=== PATIENT | male | born 1975 | race Caucasian/White ===

== ENCOUNTER 2017-04-19 18:17 | Emergency (ER) | payer MEDICAID ==
[~2017-04-19] VITALS: Ht 167.6 cm; Wt 92.0 kg
[~2017-04-19 18:17] MED LIST: B.AN1CAP PO
[2017-04-19 18:26] VITALS: Ht 167.6 cm; Wt 92.0 kg
[2017-04-19] MEDS ORDERED: ONDANSETRON (ODT) 4 MG TAB ODT STA (19:37)
--- NOTE | 2017-04-19 19:47 | ERD ---
ER Documentation Chief Complaint Date/Time DATE: 04/19/17 TIME: 19:45 Chief Complaint RUQ ap x1` week. states +gas and burning after eating denies n/v HPI 41-year-old male presents in emergency department for complaint of right upper quadrant abdominal pain for one week. Patient described pain as sharp pain, 6/ 10 scale, is worse after eating. Patient has any fever or chills. Patient denies any hematuria or dysuria. Patient denies any incontinence. ROS All systems reviewed and are negative except as per history of present illness. Medications Home Meds Reported Medications B.ani/L.aci/L.luis/L.plan/L.theodore (Probiotic Formula Capsule) 1 Each Capsule, PO DAILY 07/18/11 Allergies Allergies: Coded Allergies: No Known Allergy (Verified , 04/19/17) PMhx/Soc Medical and Surgical Hx: pt denies Medical Hx, pt denies Surgical Hx History of Surgery: No Anesthesia Reaction: No Hx Neurological Disorder: No Hx Respiratory Disorders: No Hx Cardiac Disorders: No Hx Psychiatric Problems: No Hx Miscellaneous Medical Probl: No Hx Alcohol Use: No Hx Substance Use: No Hx Tobacco Use: No Smoking Status: Never smoker FmHx Family History: No coronary disease, No diabetes, No other Physical Exam Vitals Vital Signs Date Time Temp Pulse Resp B/P Pulse Ox O2 Delivery O2 Flow Rate FiO2 04/19/17 18:26 98.0 92 18 155/92 98 Physical Exam GENERAL: The patient is well developed and appropriate for usual state of health, in no apparent distress. CHEST: Clear to auscultation bilaterally. There are no rales, wheezes or rhonchi. HEART: Regular rate and rhythm. No murmurs, clicks, rubs or gallops. No S3 or S4. ABDOMEN: Soft, nontender and nondistended. Good bowel sounds. No rebound or guarding. No gross peritonitis. No gross organomegaly or masses. No Walls sign or McBurney point tenderness. BACK: No midline or flank tenderness. EXTREMITIES: Equal pulses bilaterally. There is no peripheral clubbing, cyanosis or edema. No focal swelling or erythema. Full range of motion. Grossly neurovascularly intact. NEURO: Alert and oriented. Cranial nerves 2-12 intact. Motor strength in all 4 extremities with 5/5 strength. Sensation grossly intact. Normal speech and gait. SKIN: There is no apparent rash or petechia. The skin is warm and dry. HEMATOLOGIC AND LYMPHATIC: There is no evidence of excessive bruising or lymphedema. No gross cervical, axillary, or inguinal lymphadenopathy. Result Diagram: 04/19/17193904/19/171939 Results 24 hrs Laboratory Tests Test 04/19/17 19:40 04/19/17 19:50 White Blood Count 4.110^3/ul Red Blood Count 4.8410^6/ul Hemoglobin 14.9g/dl Hematocrit 43.5% Mean Corpuscular Volume 89.9fl Mean Corpuscular Hemoglobin 30.8pg Mean Corpuscular Hemoglobin Concent 34.3g/dl Red Cell Distribution Width 12.9% Platelet Count 89686^3/UL Mean Platelet Volume 10.5fl Neutrophils % 39.3% Lymphocytes % 43.6% Monocytes % 12.7% Eosinophils % 3.2% Basophils % 1.0% Nucleated Red Blood Cells % 0.0/100WBC Neutrophils # (Manual) 1.610^3/ul Lymphocytes # 1.810^3/ul Monocytes # 0.510^3/ul Eosinophils # 0.110^3/ul Basophils # 0.010^3/ul Nucleated Red Blood Cells # 0.010^3/ul Sodium Level 142mmol/L Potassium Level 4.2mmol/L Chloride Level 105mmol/L Carbon Dioxide Level 28mmol/L Anion Gap 13 Blood Urea Nitrogen 12mg/dl Creatinine 0.90mg/dl Glucose Level 96mg/dl Calcium Level 9.5mg/dl Total Bilirubin 0.2mg/dl Direct Bilirubin 0.00mg/dl Indirect Bilirubin 0.2mg/dl Aspartate Amino Transf (AST/SGOT) 31IU/L Alanine Aminotransferase (ALT/SGPT) 54IU/L Alkaline Phosphatase 52IU/L Total Protein 8.0g/dl Albumin 4.6g/dl Globulin 3.40g/dl Albumin/Globulin Ratio 1.35 Lipase 54U/L Urine Color COLORLESS Urine Clarity CLEAR Urine pH 6.0 Urine Specific [place] 1.003 Urine Ketones NEGATIVEmg/dL Urine Nitrite NEGATIVEmg/dL Urine Bilirubin NEGATIVEmg/dL Urine Urobilinogen NEGATIVEmg/dL Urine Leukocyte Esterase NEGATIVELeu/ul Urine Hemoglobin NEGATIVEmg/dL Urine Glucose NEGATIVEmg/dL Urine Total Protein NEGATIVEmg/dl Current Medications Medications (Trade) Dose Ordered Sig/Vickie Route PRN Reason Start Time Stop Time Status Last Admin Dose Admin Ondansetron HCl (Zofran Odt) 4 mg ONCE STAT ODT 04/19/17 19:37 04/19/17 19:39 DC 04/19/17 19:51 Patient was given Zofran here in the emergency department. After treatment, patient was able to tolerate po fluids here in the emergency department without any vomiting. There is no signs and symptoms of dehydration. PROCEDURE: US Abdomen (right upper quadrant). CLINICAL INDICATION: Right upper quadrant pain TECHNIQUE: Multiple real-time longitudinal and transverse images of the right upper quadrant of the abdomen were acquired utilizing a curved array transducer. Images were reviewed on a high-resolution PACS workstation. COMPARISON: None FINDINGS: The liver is normal in size but increased in echogenicity indicative of fatty infiltration without focal mass or intrahepatic biliary dilatation. The gallbladder is normal. There is no pericholecystic fluid or gallbladder wall thickening or gallstones. No intra or extrahepatic biliary dilatation is seen. The common bile duct measures 4.1 mm in maximal dimension. The pancreas is not well visualized due to overlying bowel gas. No free fluid is identified. The right kidney measures 9.6 cm in length. There is normal echogenicity within the right kidney. There is no perinephric fluid collection. No hydronephrosis, mass, or calculus is seen. IMPRESSION: 1. Hepatic steatosis. 2. Otherwise, unremarkable right upper quadrant ultrasound. RPTAT: HFN .Aissatou Garcia MD, Date Time Electronically viewed and signed by .Aissatou Garcia MD, on 04/19/2017 21: 26 .N/ CC: MIGUEL A VAZQUEZ [employer]ER REPAIRER Procedures/MDM Medical Decision Making: Patient's abdominal pain nonspecific at this time, can be gastritis, could be also viral. No gallbladder stones noted, liver function tests is normal, lipase is normal. No symptoms of pancreatitis.There is low suspicion for abdominal emergencies at this time. Patients abdominal exam is normal at this time. Patients radiology exam does not show any abdominal emergencies at this time. There is low suspicion for appendicitis, cholecystitis , abdominal aortic aneurysms or peritonitis at this time. There is low suspicion for sepsis. Patient appears well and is hemodynamically stable. Disposition: Home. Condition: Stable Prescription Starr, Delilah Instructions: Patient is advised to take medications as prescribed. Patient is advised to rest, increase fluid intake and do brat diet for next 1-2 days and progress as tolerated. Patient is advised that if symptoms are worse, severe abdominal pain, uncontrolled vomiting, high fever, severe flank pain, worst signs and symptoms, to return to the emergency department immediately. Otherwise, patient can follow up with primary care doctor in 5-7 days. Departure Diagnosis: Primary Impression: Abdominal pain Abdominal location: right upper quadrant Qualified Code: R10.11 - Right upper quadrant abdominal pain Condition: Stable Patient Instructions: Abdominal Pain Additional Instructions: : Patient is advised to take medications as prescribed. Patient is advised to rest, increase fluid intake and do brat diet for next 1-2 days and progress as tolerated. Patient is advised that if symptoms are worse, severe abdominal pain , uncontrolled vomiting, high fever, severe flank pain, worst signs and symptoms , to return to the emergency department immediately. Otherwise, patient can follow up with primary care doctor in 5-7 days. MIGUEL A VAZQUEZ NP Apr 19, 2017 19:47
[2017-04-19 20:13] LABS: EOSINOPHILS # 0.1 10^3/ul (0.0-0.5); EOSINOPHILS % 3.2 % (0.0-7.0); HEMATOCRIT 43.5 % (42.0-52.0); HEMOGLOBIN 14.9 g/dl (14.0-18.0); LYMPHOCYTES # 1.8 10^3/ul (0.8-2.9); LYMPHOCYTES % 43.6 % (15.0-51.0); MEAN CORPUSCULAR HEMOGLOBIN 30.8 pg (29.0-33.0); MEAN CORPUSCULAR HGB CONC 34.3 g/dl (32.0-37.0); MEAN CORPUSCULAR VOLUME 89.9 fl (82.0-101.0); MEAN PLATELET VOLUME 10.5 fl (7.4-10.4); MONOCYTE # 0.5 10^3/ul (0.3-0.9); MONOCYTES % 12.7 % (0.0-11.0); NEUTROPHILS % 39.3 % (39.0-77.0); PLATELET COUNT 202 10^3/UL (140-415); RED BLOOD COUNT 4.84 10^6/ul (4.70-6.10); RED CELL DISTRIBUTION WIDTH 12.9 % (11.5-14.5); WHITE BLOOD COUNT 4.1 10^3/ul (4.8-10.8)
[2017-04-19 20:16] LABS: ADD UMIC NO; UR ASCORBIC ACID NEGATIVE (NEGATIVE); UR BILIRUBIN (Dip) NEGATIVE (NEGATIVE); UR BLOOD (Dip) NEGATIVE (NEGATIVE); UR CLARITY CLEAR (CLEAR); UR COLOR COLORLESS (YELLOW); UR GLUCOSE (Dip) NEGATIVE (NEGATIVE); UR KETONES (Dip) NEGATIVE (NEGATIVE); UR LEUKOCYTE ESTERASE (Dip) NEGATIVE Leu/ul (NEGATIVE); UR NITRITE (Dip) NEGATIVE (NEGATIVE); UR SPECIFIC GRAVITY (Dip) 1.003 (1.003-1.030); UR TOTAL PROTEIN (Dip) NEGATIVE (NEGATIVE); UR UROBILINOGEN (Dip) NEGATIVE (NEGATIVE)
[2017-04-19 20:29] LABS: ALBUMIN 4.6 g/dl (3.3-4.9); ALBUMIN/GLOBULIN RATIO 1.35; BILIRUBIN,INDIRECT 0.2 mg/dl (0-1.1); BILIRUBIN,TOTAL 0.2 mg/dl (0.2-1.3); CALCIUM 9.5 mg/dl (8.4-10.2); CREATININE 0.9 mg/dl (0.61-1.24); POTASSIUM 4.2 mmol/L (3.5-5.1)
--- NOTE | 2017-04-19 21:27 | RADRPT ---
PROCEDURE: US Abdomen (right upper quadrant). CLINICAL INDICATION: Right upper quadrant pain TECHNIQUE: Multiple real-time longitudinal and transverse images of the right upper quadrant of th e abdomen were acquired utilizing a curved array transducer. Images were reviewed on a high-resoluti on PACS workstation. COMPARISON: None FINDINGS: The liver is normal in size but increased in echogenicity indicative of fatty infiltration without f ocal mass or intrahepatic biliary dilatation. The gallbladder is normal. There is no pericholecyst ic fluid or gallbladder wall thickening or gallstones. No intra or extrahepatic biliary dilatation is seen. The common bile duct measures 4.1 mm in maximal dimension. The pancreas is not well visua lized due to overlying bowel gas. No free fluid is identified. The right kidney measures 9.6 cm in length. There is normal echogenicity within the right kidney. There is no perinephric fluid collection. No hydronephrosis, mass, or calculus is seen. IMPRESSION: 1. Hepatic steatosis. 2. Otherwise, unremarkable right upper quadrant ultrasound. RPTAT: HFN .Aissatou Garcia MD, Date Time Electronically viewed and signed by .Aissatou Garcia MD, on 04/19/2017 21:26 .N/
[2017-04-19] MEDS ORDERED: HYDR-906 PO (21:41)
[2017-04-19] MEDS ORDERED: ONDA4TAB14 PO (21:41)
[2017-04-19 21:48] VITALS: BP 135/78; PULSE 78; RESP 18
== END 2017-04-19 21:49 | disposition home or self-care (01) ==
LOC: FTE 18:17
DX: R10.11 Right upper quadrant pain (principal)
CPT/HCPCS: 76705; 80053; 81003; 83690; 85025; Z7502; Z7610

== ENCOUNTER 2017-06-26 08:54 | Emergency (ER) | payer MEDICAID ==
[~2017-06-26] VITALS: Wt 80.0 kg
[~2017-06-26 08:54] MED LIST changes: +HYDR-906 PO; +ONDA4TAB14 PO
[2017-06-26] MEDS ORDERED: NAPR-260 PO (09:44)
[2017-06-26] MEDS ORDERED: ONDA4TAB14 PO (09:44)
[2017-06-26] MEDS ORDERED: ONDANSETRON (ODT) 4 MG TAB ODT STA (10:03)
[2017-06-26 10:09] VITALS: BP 157/77; RESP 18
--- NOTE | 2017-06-26 12:13 | ERD ---
ER Documentation Chief Complaint Chief Complaint NAUSEA X 2 WEEKS HPI Patient is a 42-year-old male presenting to the emergency department with complaints of intermittent nausea. He was treated with IV antibiotics yesterday morning and [facility] after he was diagnosed with acute bacterial prostatitis. He states every time he urinates since then he feels like his blood pressure rises, and he feels a burning sensation in his prostate. He was additionally sent home with p.o. antibiotics, which he has been taking. He denies testicular pain, fevers, chills, or other symptoms. Symptoms are moderate in severity currently. ROS All systems reviewed and are negative except as per history of present illness. Medications Home Meds Active Scripts Ondansetron (Ondansetron Odt) 4 Mg Tab.rapdis, 4 MG PO Q6H Y for NAUSEA AND/OR VOMITING, #10 TAB Prov:CHICHO HERNANDEZ PA-C 06/26/17 Naproxen* (Naprosyn*) 500 Mg Tablet, 500 MG PO BID Y for PAIN AND/OR INFLAMMATION, #20 TAB Prov:CHICHO HERNANDEZ PA-C 06/26/17 Ondansetron (Ondansetron Odt) 4 Mg Tab.rapdis, 4 MG PO Q8 Y for NAUSEA AND/OR VOMITING, #30 TAB Prov:MIGUEL A VAZQUEZ NP 04/19/17 Hydrocodone/Acetaminophen ([place] 5-325 Tablet) 1 Each Tablet, 1 TAB PO Q6H Y for SEVERE PAIN LEVEL 7-10, #20 TAB Prov:MIGUEL A VAZQUEZ NP 04/19/17 Reported Medications B.ani/L.aci/L.luis/L.plan/L.theodore (Probiotic Formula Capsule) 1 Each Capsule, PO DAILY 07/18/11 Allergies Allergies: Coded Allergies: No Known Allergy (Verified , 04/19/17) PMhx/Soc History of Surgery: No Anesthesia Reaction: No Hx Neurological Disorder: No Hx Respiratory Disorders: No Hx Cardiac Disorders: No Hx Psychiatric Problems: No Hx Miscellaneous Medical Probl: No Hx Alcohol Use: No Hx Substance Use: No Hx Tobacco Use: No Smoking Status: Never smoker Physical Exam Vitals Vital Signs Date Time Temp Pulse Resp B/P Pulse Ox O2 Delivery O2 Flow Rate FiO2 06/26/17 10:09 18 157/77 99 06/26/17 08:56 98.1 77 18 157/77 99 Physical Exam Const: Nontoxic, well-appearing male in no acute distress. Head: Atraumatic Eyes: Normal Conjunctiva ENT: Normal External Ears, Nose and Mouth. Neck: Full range of motion..~ No meningismus. Resp: Clear to auscultation bilaterally Cardio: Regular rate and rhythm, no murmurs Abd: Soft, non tender, non distended. Normal bowel sounds Skin: No petechiae or rashes Ext: No cyanosis, or edema Neur: Awake and alert Psych: Normal Mood and Affect Results 24 hrs Current Medications Medications (Trade) Dose Ordered Sig/Vickie Route PRN Reason Start Time Stop Time Status Last Admin Dose Admin Ondansetron HCl (Zofran Odt) 4 mg ONCE STAT ODT 06/26/17 10:03 06/26/17 10:04 DC 06/26/17 10:09 Procedures/MDM 42-year-old male presenting emergency department with complaints of nausea after receiving IV antibiotics yesterday for prostatitis. Digital rectal exam not indicated at this time as it may spread the infection. The patient may be feeling nauseous secondary to IV antibiotics. He denied any abdominal pain. Pain is likely secondary to acute prostatitis, and he was counseled that this may take some days to resolve. If the pain continues the patient will need to follow-up with his primary care physician and if indicated, urology. If his symptoms worsen or persist he is to return immediately. No evidence of life- threatening pathology at time of discharge. Patient was given prescriptions for at home management of his pain and nausea. Departure Diagnosis: Primary Impression: Nausea Additional Impression: Prostate pain Condition: Fair Patient Instructions: Nausea, Prostatitis [facility]: [facility] Usted se alvarez hecho un examen mdico de control que le indica que no est en gibran condicin que requiera tratamiento urgente en el Departamento de Emergencia. Un estudio ms profundo y el tratamiento de leon condicin pueden esperar sin ningn riesgo hasta que usted sea atendida/o en el consultorio de leon mdico o gibran cl darshan. Es responsabilidad suya arreglar gibran juan para el seguimiento del jeffrey. MANEJO DE CONDICIONES NO URGENTES EN EL FUTURO 1) Si usted tiene un mdico de atencin primaria: Usted debera llamar a leon mdico de atencin primaria antes de venir al departamento de emergencia. Despus de las horas de consultorio, leon doctor o leon asociado/a est disponible por telfono. El mdico o enfermero de luke en el servicio telefnico puede asesorarle por johnnie medio para atender el problema, o jeffrey contrario se puede programar gibran juan. 2) Si usted no tiene un mdico de atencin primaria: Llame al mdico o clnica de referencia que aparece abajo chasity las horas de consultorio para hacer gibran juan para que le vean. CLINICAS: [facility] [phone] [facility] [phone] [facility] [phone] [facility] [facility] [phone] [facility] [phone] [facility]. [phone] Additional Instructions: No mas mejor en 2-3 ramos, regresar. Mas peor en 24 horas, regresear rapidamente. Ir a doctor primario en 1-2 ramos. Usar instrucciones cuando link medicamento. CHICHO HERNANDEZ PA-C Jun 26, 2017 12:13
== END 2017-06-26 10:09 | disposition home or self-care (01) ==
LOC: FTE 08:54
DX: N42.89 Other specified disorders of prostate (principal)
CPT/HCPCS: Z7502; Z7610; 99283

== ENCOUNTER 2017-09-03 21:29 | Emergency (ER) | END 2017-09-04 01:06 | disposition home or self-care (01) ==